=== PATIENT | female | born 1970 | race Two or more races ===

== ENCOUNTER → 2024-03-25 | Outpatient (CLI) | payer MEDICAID, SELFPAY ==
--- NOTE | 2024-03-25 09:15 | XR_ITS ---
Examination: Screening digital mammography, bilateral Computer aided detection 3-D breast Tomosynthesis, bilateral Date and time of exam: March 25, 2024 0908 hours Compared to mammograms dating to October 27, 2018 Indication: Screening Technique: Nonmagnified MLO, CC views of the breasts to been obtained, reconstructed from 3-D Tomosynthesis images. R2 computer aided detection program utilized for evaluation of suspicious masses and/or abnormal calcifications. 3-D Tomosynthesis images obtained. Findings: Scattered areas of fibroglandular density Benign calcifications. No interval suspicious masses Impression: BI-RADS category II: Benign Findings. Recommend 1 year follow-up mammogram.
== END | disposition home or self-care (01) ==
LOC: CDIM 08:54
PROVIDERS: Referring Provider Obstetrics & Gynecology; Visit Provider Obstetrics & Gynecology
DX: Z12.31 Encounter for screening mammogram for malignant neoplasm of breast (principal); R92.323 Mammographic fibroglandular density, bilateral breasts; R92.1 Mammographic calcification found on diagnostic imaging of breast
CPT/HCPCS: 77063; 77067

== ENCOUNTER 2024-09-15 10:05 | Day surgery (SDC) | payer MEDICAID, SELFPAY ==
--- NOTE | 2024-09-13 11:55 | EKG_ITS ---
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
[2024-09-13 12:45] LABS: Alanine Aminotransferase 12 U/L (10-49); Albumin, Serum 4.2 gm/dL (3.5-5.0); Albumin/Globulin Ratio 1.8 (1.2-2.2); Alkaline Phosphatase 84 U/L (46-116); Anion Gap 8 (7-16); Aspartate Amino Transferase 18 U/L (0-34); BUN/Creatinine Ratio 18 Ratio (12-20); Bilirubin,Total 0.6 mg/dL (0.3-1.2); Blood Urea Nitrogen 14 mg/dL (9-23); Carbon Dioxide 27.4 mMol/L (20.0-31.0); Chloride 107 mMol/L (98-107); Creatinine (Component) 0.8 mg/dL (0.6-1.3); Globulin 2.3 gm/dL (2.3-3.5); Glucose 91 mg/dL (74-106); Osmolality,Calculated 283 (275-295); Potassium 4.2 mMol/L (3.4-5.1); Sodium 142 mMol/L (136-145); Total Protein 6.5 gm/dL (5.7-8.2); eGFR > 60 See Note
[2024-09-14 10:57] VITALS: BMI 28.3
[2024-09-15] VITALS (8 sets, daily range): BP systolic 84–107; BP diastolic 48–84; PULSE 63–105; RESP 12–18; TEMP 36.7–36.8; O2SAT 96–98; BMI 28.1
[2024-09-15] MEDS: RINGERS LACTATED 1000 ML 1,000 ML 125 ML IV (11:00)
[2024-09-15] MEDS: PANTOPRAZOLE INJ 40 MG VIAL 80 MG IVP (12:01)
--- NOTE | 2024-09-15 12:14 | SUR.PHASEII ---
1133: Pt received for recovery. Report from Eugenia VENTURA and Dr. Kirby. Pt groggy. Is arousable with eye opening then drifts back to sleep. Resp even, unlabored. BP low. Anesthesia recommended to give bolus of LR 500cc. Infusing at this time. Other VS stable. No c/o pain, discomfort. 1201: Pantoprazole 80mg given at this time. Pt has been resting with no complaints voiced. BP coming up slightly. Pt is alert, responses appropriate. VS stable. Denies pain. 1205: Pt tolerated Pantoprazole medication with no adverse reactions noted. 1220: Pt sitting up tolerating po fluids with no difficulty swallowing and no n/v.
--- NOTE | 2024-09-15 15:23 | SUR.PHASEII ---
1250: Pt fully awake, oriented x3. BP has remained stable low. Other VS stable. Denies pain, nausea. Pt assisted to restroom. Ambulation steady. Pt and stated understanding of discharge instructions via court interpreter Toby [email or web address]. Pt also instructed to pecan picker her prescription at her pharmacy. Pt discharged from [facility] in stable condition.
== END 2024-09-15 12:50 | disposition home or self-care (01) ==
PROVIDERS: Anesthesiology; PCP Physician Assistant; Referring Provider Internal Medicine Gastroenterology; Visit Provider Internal Medicine Gastroenterology
PROC: 0DBE8ZX Excision of Large Intestine, Via Natural or Artificial Opening Endoscopic, Diagnostic (ICD-10-PCS; CPT 45380; principal; 2024-09-15 14:15)
PROC: (CPT 43239; 2024-09-15 14:15)
DX: K52.9 Noninfective gastroenteritis and colitis, unspecified (principal); K64.9 Unspecified hemorrhoids; K57.30 Diverticulosis of large intestine without perforation or abscess without bleeding; I10 Essential (primary) hypertension; Z01.810 Encounter for preprocedural cardiovascular examination; K29.50 Unspecified chronic gastritis without bleeding; K31.89 Other diseases of stomach and duodenum; K63.5 Polyp of colon
CPT/HCPCS: 45380; 36415; 80053; 93005; C1726; J2470; J7120

== ENCOUNTER 2024-11-08 11:05 | Day surgery (SDC) | payer MEDICAID, SELFPAY ==
[2024-11-08] VITALS (8 sets, daily range): BP systolic 109–147; BP diastolic 61–88; PULSE 55–78; RESP 11–20; TEMP 36.4–36.7; O2SAT 93–100; BMI 28.8
[2024-11-08] MEDS: RINGERS LACTATED 1000 ML 1,000 ML 125 ML IV (12:45)
[2024-11-08] MEDS: BENZOCAINE 20% (Hurricaine) SPRAY 1 DOSE TOP (12:45)
[2024-11-08] MEDS: fentaNYL CIT INJ 50 mCg/ML AMP 2ML (ASD USE ONLY) IVP (12:48)
[2024-11-08] MEDS: MIDAZOLAM INJ 1 MG/ML VIAL 2 ML (ASD USE ONLY) 2 MG IVP (12:51)
[2024-11-08] MEDS: ONDANSETRON INJ 2 MG/ML INJ 2 ML 4 MG IVP (12:55)
== END 2024-11-08 13:35 | disposition home or self-care (01) ==
PROVIDERS: PCP Physician Assistant; Referring Provider Internal Medicine Gastroenterology; Visit Provider Internal Medicine Gastroenterology
PROC: (CPT 43239; principal; 2024-11-08 12:00)
DX: K29.50 Unspecified chronic gastritis without bleeding (principal); K44.9 Diaphragmatic hernia without obstruction or gangrene; I10 Essential (primary) hypertension; Q39.6 Congenital diverticulum of esophagus; E88.810 Metabolic syndrome; Z86.0100 Personal history of colon polyps, unspecified
CPT/HCPCS: 43239; 81025; A4649; J1200; J2250; J2405; J3010; J7120; A9270

== ENCOUNTER → 2024-12-13 | Outpatient (CLI) | payer MEDICAID, SELFPAY ==
--- NOTE | 2024-12-13 15:19 | XR_ITS ---
Examination: Shoulder,right, 3 views Technique: Shoulder AP internal rotation, AP external rotation, Y view shoulder, 3 views Exam date and time :December 13, 2024 1528 hours INDICATIONS: Right shoulder pain beginning one week ago. FINDINGS: Mild narrowing glenohumeral joint Right shoulder calcific tendinitis. No fracture or dislocation IMPRESSION: Mild right shoulder calcific tendinitis
== END | disposition home or self-care (01) ==
LOC: CDIM 14:40
PROVIDERS: PCP Obstetrics & Gynecology; Referring Provider Obstetrics & Gynecology; Visit Provider Obstetrics & Gynecology
DX: M75.31 Calcific tendinitis of right shoulder (principal)
CPT/HCPCS: 73030

== ENCOUNTER 2025-01-23 12:53 | Emergency (ER) | payer MEDICAID, SELFPAY ==
[2025-01-23 13:14] VITALS: BP 157/89; PULSE 72; RESP 18; TEMP 36.8; O2SAT 95
--- NOTE | 2025-01-23 13:19 | EKG_ITS ---
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
--- NOTE | 2025-01-23 13:19 | XR_ITS ---
Examination: CT brain head without contrast. 2-D sagittal coronal reconstructions Date and time of exam: 01/23/2025 at 2:55 p.m. COMPARISON: None INDICATION: Generalized headaches. CTDI: vol (mGy): 51.30 DLP: (mGycm): 978 Technique: Multiple CT axial sections of the brain have been obtained, 5 mm slice thickness. Contrast has not been administered. 2-D sagittal, coronal reconstructions have been obtained Low dose protocols were performed. One or more of the following dose reduction techniques were used; automated exposure control, adjustment of the mA and/or KV according to patient size, use of iterative reconstruction technique. Findings: No significant ventricular enlargement. Intra-axial or extra-axial hemorrhage density is not seen. No mass effect or midline shift Basal cisterns are not remarkable. Fourth ventricle is midline. Cranial vault intact. Left-sided nasal piercing noted. Impression: Negative for acute hemorrhage, mass effect or midline shift.
[2025-01-23 14:00] LABS: Basophils # (Auto) 0.0 Thou/mm3 (0.0-0.2); Basophils % (Auto) 1 % (0-2.5); Eosinophils # (Auto) 0.0 Thou/mm3 (0.0-0.5); Eosinophils % (Auto) 0 % (0-10); Hematocrit 43.0 % (36.0-46.0); Hemoglobin 14.2 g/dL (12.0-16.0); Immature Granulocytes Auto 0.02 Thou/mm3 (0.00-0.00); Lymphocytes # (Auto) 1.5 Thou/mm3 (1.0-4.8); Lymphocytes % (Auto) 18 % (10-50); Mean Corpuscular HGB Conc 33.0 g/dl (31.0-37.0); Mean Corpuscular Hemoglobin 30.9 pg (25.0-35.0); Mean Corpuscular Volume 94 fL (80-100); Monocytes # (Auto) 0.2 Thou/mm3 (0.0-0.8); Monocytes % (Auto) 3 % (0-12); Neutrophils # (Auto) 6.7 Thou/mm3 (1.8-7.7); Neutrophils % (Auto) 79 % (37-80); Nucleated Red Blood Cell # 0.00 Thou/mm3 (0.00-0.00); Nucleated Red Blood Cell % 0 /100 WBC (0); Platelet Count 204 Thou/mm3 (140-440); RDW Standard Deviation 43.8 fL (36.4-46.3); Red Blood Count 4.60 Miln/mm3 (4.00-5.20); White Blood Count 8.5 Thou/mm3 (3.6-11.0)
[2025-01-23 14:18] LABS: Alanine Aminotransferase 14 U/L (10-49); Albumin, Serum 4.9 gm/dL (3.5-5.0); Albumin/Globulin Ratio 2.0 (1.2-2.2); Alkaline Phosphatase 85 U/L (46-116); Anion Gap 9 (7-16); Aspartate Amino Transferase 23 U/L (0-34); BUN/Creatinine Ratio 18 Ratio (12-20); Bilirubin,Total 0.5 mg/dL (0.3-1.2); Blood Urea Nitrogen 16 mg/dL (9-23); Calcium 10.0 mg/dL (8.3-10.6); Calcium (Corrected) 10.0 mg/dL (8.5-10.1); Carbon Dioxide 27.8 mMol/L (20.0-31.0); Chloride 105 mMol/L (98-107); Creatinine (Component) 0.9 mg/dL (0.6-1.3); Globulin 2.4 gm/dL (2.3-3.5); Glucose 121 mg/dL (74-106); Osmolality,Calculated 285 (275-295); Potassium 4.7 mMol/L (3.4-5.1); Sodium 142 mMol/L (136-145); Total Protein 7.3 gm/dL (5.7-8.2); Troponin I < 0.002 ng/mL (0.0-0.045); eGFR > 60 See Note
[2025-01-23 14:21] LABS: Collection Type, Urine Clean Catch
[2025-01-23 14:37] LABS: Bilirubin,Urine Negative (Negative); Blood,Urine Negative (Negative); Clarity,Urine Clear (Clear/Hazy); Color,Urine Lt-Yellow (Lt Yel-Yel); Glucose, Urine Negative (Negative); Ketones,Urine Negative (Negative); Leukocyte Esterase,Urine Positive (Negative); Nitrite,Urine Negative (Negative); PH,Urine 6.5 (5.0-7.0); Protein,Urine Negative (Neg - Trace); RBC,Urine 3 /hpf (0-3); Specific Gravity,Urine 1.017 (1.001-1.035); Squamous Epithelial Cell,Urine 2 /hpf (0-5); Urobilinogen,Urine Negative mg/dL (0.0-1.0); WBC,Urine 4 /hpf (0-5)
[2025-01-23 14:38] LABS: HCG Qualitative,Urine Negative
--- NOTE | 2025-01-23 16:42 | PD.EDDIZZY ---
ED Dizzyness RME/HPI General Chief Complaint: Dizziness Stated Complaint: DIZZY, L) EAR PAIN, NAUSEA, Time Seen by Provider: 01/23/25 13:06 Arrival date/time: 01/23/25 12:53 This is a case of 54-year-old female with history of hypertension and GERD came in in the emergency room due to dizziness for 1 day associated with frontal headache nausea and vomiting patient denies any head injury or trauma denies any blurring of vision denies any numbness weakness tingling sensation patient also complaining of left ear pain initially patient was complaining of both upper abdominal pain but when I asked the patient patient denies any abdominal pain constipation or diarrhea Limitations: no limitations Related Data Home Medications ?Medication ?Instructions ?Recorded ?Confirmed alprazolam 1 mg tablet 1 mg PO TID PRN anxiety 09/15/24 11/08/24 lisinopril 20 mg tablet 20 mg PO QDAY 09/15/24 11/08/24 omeprazole 20 mg capsule,delayed 20 mg PO QDAY 11/08/24 11/08/24 release Previous Rx's ?Medication ?Instructions ?Recorded amoxicillin 875 mg-potassium 1 tab PO BID #20 tabs 01/23/25 clavulanate 125 mg tablet tuzlkmdgah-ydnktty-vtnbfkww 50 1 cap PO Q6H PRN headache #10 caps 01/23/25 mg-325 mg-40 mg capsule meclizine 50 mg tablet 50 mg PO Q8H PRN dizziness #20 tabs 01/23/25 ofloxacin 0.3 % ear drops 5 drp otic (ear) BID 7 days #10 mL 01/23/25 ondansetron 4 mg disintegrating 4 mg PO Q8H #20 tabs 01/23/25 tablet Allergies Allergy/AdvReac Type Severity Reaction Status Date / Time No Known Allergies Allergy Verified 01/23/25 12:56 Review of Systems Review of Systems Systems Reviewed: All systems reviewed, normal except as documented Constitutional Constitutional: Reports system reviewed and no additional complaints, except as documented and Reports as per HPI Eyes Eyes: Reports system reviewed and no additional complaints, except as documented and Reports as per HPI ENT Ears, Nose, Mouth, and Throat: Reports system reviewed and no additional complaints, except as documented and Reports as per HPI Cardiovascular Cardiovascular: Reports system reviewed and no additional complaints, except as documented and Reports as per HPI Respiratory Respiratory: Reports system reviewed and no additional complaints, except as documented and Reports as per HPI Gastrointestinal Gastrointestinal: Reports system reviewed and no additional complaints, except as documented and Reports as per HPI Genitourinary Genitourinary: Reports system reviewed and no additional complaints, except as documented and Reports as per HPI Neurologic Neurologic: Reports system reviewed and no additional complaints, except as documented and Reports as per HPI Past Medical History Past Medical History NEUROLOGIC: Negative Neurological Disorders or Seizures CARDIAC: Positive Cardiac Disorders, Hypercholesterolemia (no meds) and Hypertension; Negative Congestive Heart Failure RESPIRATORY: Positive Bronchitis (FREQUENT BRONCHITIS); Negative Chronic Obstructive Pulmonary Disease (COPD) GASTROINTESTINAL: Positive Gastrointestinal Disorders (SEVERE ABDOMINAL PAIN, DYSPHAGIA) and Ulcer; Negative Hepatitis GENITOURINARY: Negative Genitourinary Disorders or Renal Disease REPRODUCTIVE: Positive Previous Pregnancies MUSCULOSKELETAL: Positive Musculoskeletal Disorders (SCIATIC NERVE PAIN) and Arthritis ENDOCRINE: Positive Endocrine Disorders; Negative Diabetes Mellitus Type 1 or Diabetes Mellitus Type 2 (PREDIABETES-ON OZEMPIC (for weight los)) HEMATOLOGIC: Negative Blood Disorders PSYCHO/SOCIAL: Positive Depression (IN THE PAST) and Anxiety (TAKES MEDS) OTHER HISTORY: Positive Hospitalization (FOR ABDOMINAL PAIN), Chicken Pox and Mumps; Negative Falls, Blood Transfusions, Blood Transfusion Reaction, Anesthesia Reactions, MRSA, Measles or Cancer Surgical History SURGICAL: Positive Section (X2) Social History SMOKING STATUS: Never smoker ED Exam General Limitations: Present no limitations General appearance: Present alert, in no apparent distress and other (Patient is awake alert oriented not in distress nontoxic looking well-hydrated well-nourished) Head Head exam: Present atraumatic, normocephalic and normal inspection Eye Eye exam: Present normal appearance, PERRL, EOMI and other (PERRL EOM intact normal conjunctiva no papilledema) ENT ENT exam: Present normal exam, normal oropharynx, mucous membranes moist and other (Nose and throat exam is normal bilateral tympanic membrane noted to be red retracted bulging but not perforated ear canal noted to be red mild redness) Neck Neck exam: Present normal inspection, full ROM, trachea midline and other; Absent tenderness, meningismus, lymphadenopathy or thyromegaly Chest Chest inspection: Present normal inspection and symmetric chest wall rise; Absent tenderness Respiratory Respiratory exam: Present normal lung sounds bilaterally; Absent respiratory distress, wheezes, stridor, accessory muscle use or prolonged expiratory phase Cardiovascular Cardiovascular exam: Present regular rate, normal rhythm and normal heart sounds; Absent bradycardia, tachycardia, irregular rhythm, systolic murmur or diastolic murmur Abdominal Exam Abdominal exam: Present soft and normal bowel sounds; Absent distention, tenderness, guarding, rebound, rigidity, diminished bowel sounds, hyperactive bowel sounds, hypoactive bowel sounds, organomegaly, psoas sign, obturator sign, Carter's sign, Rovsing's sign, tenderness at McBurney's Point, ascites or hernia Extremities Exam Extremities exam: Present normal inspection and full ROM Back Exam Back exam: Present normal inspection and full ROM Neurological Exam Neurological exam: Present alert, oriented X3, CN II-XII intact, normal gait, reflexes normal and other (Awake alert oriented x 4 no focal deficit GCS 15/15 steady gait CN II to XII is normal motor or sensory reflex were all normal in all extremities negative Babinski memory intact no slurring of speech no facial droop); Absent motor sensory deficit Psychiatric Psychiatric exam: Present normal affect and normal mood Skin Skin exam: Present warm, dry, intact, normal color and other (Excellent skin turgor) Course Quality Measures none Orders Category Date Time Status EKG (ED ONLY) *Do not use* NOW Care 01/23/25 13:[address] head/brain wo con Stat Exams 01/23/25 13:19 Completed EKG (ED Only) Stat Exams 01/23/25 13:19 Draft CBC Stat Lab 01/23/25 13:50 Completed Comprehensive Metabolic Panel Stat Lab 01/23/25 13:50 Completed HCG Qualitative,Urine Stat Lab 01/23/25 14:05 Completed Troponin I Stat Lab 01/23/25 13:50 Completed Urinalysis Stat Lab 01/23/25 14:05 Completed HYDROcodone*/APAP 5/325 [[place] 5/325] Med 01/23/25 16:41 Discontinued 1 tab PO X1 ONE Meclizine HCl [Antivert] Med 01/23/25 16:41 Discontinued 50 mg PO X1 ONE Ondansetron Odt [Zofran Odt] Med 01/23/25 16:41 Discontinued 4 mg PO X1 ONE Vital Signs Vital signs: Vital Signs Temperature 98.2 F 01/23/25 13:14 Pulse Rate 72 01/23/25 13:14 Respiratory Rate 18 01/23/25 13:14 Blood Pressure 157/89 H 01/23/25 13:14 Pulse Oximetry (%) 95 01/23/25 13:14 Oxygen Delivery Method Room Air 01/23/25 13:14 Oxygen saturation is 95% in room air Dizziness MDM Narrative MDM Narrative:: This is a case of 54-year-old female with history of hypertension and GERD came in in the emergency room due to dizziness for 1 day associated with frontal headache nausea and vomiting patient denies any head injury or trauma denies any blurring of vision denies any numbness weakness tingling sensation patient also complaining of left ear pain initially patient was complaining of both upper abdominal pain but when I asked the patient patient denies any abdominal pain constipation or diarrhea physical examination patient is awake alert oriented not in distress nontoxic looking well-hydrated well-nourished vital signs stable BP stable not tachycardic not tachypneic afebrile and nonhypoxic patient PERRL EOM intact normal conjunctiva no palpable edema bilateral ear canal noted to have redness tender but no mastoid tenderness bilaterally tympanic membrane noted to be red retracted but not perforated nose and throat exam were normal negative for meningeal sign lungs sound is clear no crackles no rales no retraction no stridor heart normal rate regular rhythm no murmur abdominal exam is benign nonsurgical no guarding no rebound no rigidity negative psoas negative straight or negative Rovsing's negative William's negative Carter sign negative CVA tenderness patient neurological exam is normal awake alert oriented x 4 no focal deficit GCS 15/15 steady gait memory intact no slurring of speech no facial droop motor or sensory reflex were normal CN II to XII is normal negative for Babinski based on my physical examination and history patient dizziness and headache is possible due to otitis media infection and urinary tract infection patient blood test showed no leukocytosis no anemia kidney and liver function is normal no electrolyte imbalance glucose is normal patient urinalysis showed WBC in the urine suggestive of urinary tract infection EKG is normal sinus rhythm troponin is negative patient CT scan of the head is negative for intracranial pathology patient symptoms suggestive of otitis media patient was given [place] Zofran and meclizine for headache and dizziness patient condition markedly improved and resolved patient will follow-up with PCP in 2 days for reevaluation and to be referred to neurologist for headache and dizziness patient was prescribed with Augmentin and ofloxacin for ear infection Zofran for vomiting meclizine for dizziness and I will give some Fioricet for headache patient advised for any worsening symptoms or any emergent concern return precaution in the ER is advised Patient was discharged with comfortable condition walking with stable gait. Patient verbalized no further complains explained diagnosis and answered patient question. Patient is comfortable with the proposed management plan including the need to follow up with his/her primary care physician and any specialist if applicable Discussed patient for any urgent condition or worsening sx, He/She needed to go to emergency room immediately or call 911. Patient acknowledge the responsibility to follow up as instructed and to monitor her/his symptoms. For any persistence of the symptoms for more than 3-5 days return precaution advised. Discussed the result of the test and was given printed discharge instruction Patient data External records reviewed:: [facility] previous records Clinical information provided by:: patient Social determinants that could affect healthcare access:: none Patient has the following chronic illnesses:: None How is presenting disease/condition affected by chronic disease/condition?: no chronic disease Evaluation data The following diagnostics were reviewed and interpreted by me:: lab results, radiology exam(s) and EKG tracing(s) Lab and/or radiology exams considered but not ordered:: Reviewed Interpretation Summary: Reviewed Medications / Prescriptions Medications or Prescriptions considered but not ordered:: Given Medication administrations:: Medication Administration History Discontinued Medications Hydrocodone Bitart/Acetaminophen (Hydrocodone/Apap 5/325 Tablet) 1 tab PO X1 ONE Stop: 01/23/25 16:42 Meclizine HCl (Meclizine Hcl 25 Mg Tablet) 50 mg PO X1 ONE Stop: 01/23/25 16:42 Ondansetron HCl (Ondansetron Odt 4 Mg Tabrap) 4 mg PO X1 ONE; Protocol Stop: 01/23/25 16:42 Given Consultations Consultation(s) initiated? (list below): No Diagnosis Dizziness Differential Diagnosis: benign paroxysmal positional vertigo and orthostatic hypotension Most likely diagnosis given after review of the tests above:: Otitis media dizziness headache urinary tract infection Admission Indicated Admission indicated?: not indicated Explain why admission is indicated or not indicated:: Not indicate Admission Request Was there a request for admission?: No Disposition Plan Disposition Plan: Discharge Discharge Attestation Discharge Attestation: The patient and all family members were given an opportunity to ask questions and understood the discharge instructions. Discharge instructions specifically effects, indications for sooner follow up or return to the emergency department, and the expected course of current diagnosis. Patient condition: Stable Discharge Plan Plan Patient Disposition: HOME (Self Care) Patient condition on transfer: Stable Prescriptions/Referrals Prescriptions/Med Rec: New jncwejchoc-fgtelgi-iwgmgmby 50-325-40 mg capsule 1 cap PO Q6H PRN (Reason: headache) Qty: 10 0RF meclizine 50 mg tablet 50 mg PO Q8H PRN (Reason: dizziness) Qty: 20 0RF ofloxacin 0.3 % drops 5 drp otic (ear) BID 7 Days Qty: 10 0RF ondansetron 4 mg tablet,disintegrating 4 mg PO Q8H Qty: 20 0RF amoxicillin-pot clavulanate 875-125 mg tablet 1 tab PO BID Qty: 20 0RF No Action lisinopril 20 mg tablet 20 mg PO QDAY alprazolam 1 mg tablet 1 mg PO TID PRN (Reason: anxiety) omeprazole 20 mg capsule,delayed release(DR/EC) 20 mg PO QDAY Referrals: Eleuterio Mancini [Primary Care Provider] - In 1 week Problem List Clinical Impression: Headache, Dizziness, Otitis media, Urinary tract infection Patient/Caregiver Discharge Instructions Education Materials: Urinary Tract Infections in Women, Self-Care for Headaches, ED Dizziness, Uncertain Cause, ED Otitis Media Antibiotic ... Additional Instructions: Follow-up with your primary care physician in 2 days for reevaluation and to be referred to neurologist for further evaluation and treatment of your headache and dizziness recurrence persistent worsening symptoms or any emergent concerns such as numbness weakness tingling sensation blurring of vision return to the emergency room immediately or call 911 take your medication as directed finish the course of antibiotic keep hydrated. Pedialyte Gatorade for hydration is advised no Q-tips no cotton balls prevent water to enter both ears is advised Print Language: Afghan Stand Alone Forms: Yan[employer] Award Info., Patient Portal Info Letter PA/OPTICAL STORE MANAGER Supervising Physician PA/OPTICAL STORE MANAGER Supervising Physician: dr gomez
[2025-01-23] MEDS: ONDANSETRON ODT 4 MG TABRAP PO (17:07)
[2025-01-23] MEDS: MECLIZINE HCL 25 MG TABLET 50 MG PO (17:09)
[2025-01-23 17:16] VITALS: BP 140/72; PULSE 72; RESP 18; TEMP 36.7; O2SAT 98
== END 2025-01-23 17:17 | disposition home or self-care (01) ==
PROVIDERS: Nurse Practitioner Family; Emergency Provider Emergency Medicine; PCP Physician Assistant
DX: H66.92 Otitis media, unspecified, left ear (principal); I10 Essential (primary) hypertension; N39.0 Urinary tract infection, site not specified
CPT/HCPCS: 36415; 70450; 80053; 81001; 81025; 84484; 85025; 93005; 99283; Q0162; A9270

== ENCOUNTER 2025-02-02 08:45 | Day surgery (SDC) | payer MEDICAID, SELFPAY ==
[2025-02-01 10:54] VITALS: BMI 28.8
[2025-02-02] VITALS (9 sets, daily range): BP systolic 105–147; BP diastolic 63–95; PULSE 63–80; RESP 12–20; TEMP 36.2–36.8; O2SAT 92–98; BMI 28.6
[2025-02-02] MEDS: RINGERS LACTATED 500 ML 500 ML 20 ML IV (10:10)
[2025-02-02] MEDS: BENZOCAINE 20% (Hurricaine) SPRAY 1 DOSE TOP (10:10)
[2025-02-02] MEDS: fentaNYL CIT INJ 50 mCg/ML AMP 2ML (ASD USE ONLY) IVP (10:12)
[2025-02-02] MEDS: MIDAZOLAM INJ 1 MG/ML VIAL 2 ML (ASD USE ONLY) 2 MG IVP (10:21)
--- NOTE | 2025-02-02 11:12 | SUR.PHASEII ---
Patient stable awake on room air, able to dress herself. Sitting up in wheelchair at this time waiting for family. has stated he would like to speak to patient prior to dc as well. All needs met at this time. Tolerating oral fluids well.
--- NOTE | 2025-02-02 11:31 | SUR.PHASEII ---
@1122 Patient safely discharged home, MD able to speak to family and patient. All questions answered and verbal return of understanding given.
== END 2025-02-02 11:25 | disposition home or self-care (01) ==
PROVIDERS: PCP Physician Assistant; Referring Provider Internal Medicine Gastroenterology; Visit Provider Internal Medicine Gastroenterology
PROC: (CPT 43239; principal; 2025-02-02 11:30)
DX: K22.2 Esophageal obstruction (principal); K21.00 Gastro-esophageal reflux disease with esophagitis, without bleeding; I10 Essential (primary) hypertension; K31.89 Other diseases of stomach and duodenum; Q39.6 Congenital diverticulum of esophagus; K44.9 Diaphragmatic hernia without obstruction or gangrene; K29.50 Unspecified chronic gastritis without bleeding
CPT/HCPCS: 43249; 43239; A4649; C1726; J1200; J2250; J2470; J3010; J7120; A9270